=== PATIENT | male | born 1965 | race Caucasian/White ===

== ENCOUNTER 2016-10-16 14:03 | Inpatient (IN) | payer MEDICAID ==
[2016-10-16 14:44] LABS: % IMMATURE GRANULYOCYTES 0.4 % (0.0-1.1); ABSOLUTE IMMATURE GRANULOCYTES 0.02 10^3/uL (0.00-0.10); ADD DIFF? NO; ADD MORPH? NO; ADD SCAN? NO; ATYPICAL LYMPHOCYTE FLAG 0 (0-99); FRAGMENT RBC FLAG 0 (0-99); HEMATOCRIT 43.2 % (40.0-51.0); LEFT SHIFT FLG 0 (0-99); LIPEMIA HEMOLYSIS FLAG 90 (0-99); MEAN CELL HEMOGLOBIN 36.3 pg (27.9-34.1); MEAN CELL HEMOGLOBIN CONCENTR. 34.7 g/dL (32.4-36.7); MEAN CELL VOLUME 104.6 fL (81.5-99.8); MEAN PLATELET VOLUME 9.7 fL (8.7-11.7); PLATELET CLUMPS FLAG 10 (0-99); PLATELET COUNT 91 10^3/uL (150-400); RED BLOOD CELL COUNT 4.13 10^6/uL (4.40-6.38); RED CELL DISTRIBUTION WIDTH 12.1 % (11.5-15.2)
[2016-10-16 14:56] LABS: ANION GAP 12 mEq/L (8-16); CALCIUM 8.4 mg/dL (8.5-10.4); CARBON DIOXIDE 24 mEq/l (22-31); CHLORIDE 98 mEq/L (97-110); CREATININE 0.6 mg/dL (0.7-1.3); ETHANOL SERUM 239 mg/dL (0-10); GLOMERULAR FILTRATION RATE > 60; GLUCOSE 126 mg/dL (70-100); POTASSIUM 4.1 mEq/L (3.5-5.2); SODIUM 134 mEq/L (134-144)
[2016-10-16 15:16] LABS: ALBUMIN 4.1 g/dL (3.5-5.0); BILIRUBIN,TOTAL 1.5 mg/dL (0.1-1.4); BILIRUBIN-CONJUGATED 0.9 mg/dL (0.0-0.5); BILIRUBIN-UNCONJUGATED 0.6 mg/dL (0.0-1.1); TOTAL PROTEIN 7.4 g/dL (6.3-8.2)
--- NOTE | 2016-10-16 15:16 | EDPHY ---
H & P Stated Complaint: Low o2, bilateral LE edema Source: Patient, Family, Old records Exam Limitations: Intoxication - Personal History Current Tetanus/Diphtheria Vaccine: Unsure Current Tetanus Diphtheria and Acellular Pertussis (TDAP): Unsure - Medical/Surgical History Hx Asthma: No Hx Chronic Respiratory Disease: No Hx Diabetes: No Hx Cardiac Disease: No Hx Renal Disease: No Hx Cirrhosis: No Hx Alcoholism: Yes Hx HIV/AIDS: No Hx Splenectomy or Spleen Trauma: No Other PMH: Anxiety, ETOH Abuse - Social History Smoking Status: Never smoked Alcohol Use: Heavy Time Seen by Provider: 10/16/16 14:20 HPI/ROS: CHIEF COMPLAINT: lower extremity swelling HISTORY OF PRESENT ILLNESS: 51-year-old male presents emergency department sent from his primary care doctor's office today for low oxygen saturations and evaluation for lower extremity edema. Patient reports 4-5 weeks of lower extremity swelling, his doctor at [facility] started him on furosemide 40 mg a couple weeks ago, patient reports this is not helping. Patient reports feeling tired with shortness of breath on exertion. He reports he drinks 30 oz of vodka daily. Patient lost his job 7 months ago and has been drinking more sense. Before this he was drinking 16 oz daily for 30 years. Patient denies history of alcohol withdrawal seizure. He does report he gets the shakes sometimes. Patient reports he has had a difficult time sleeping over the last couple months. He was started on Neurontin recently for anxiety. He denies drug use, he does not smoke cigarettes. No cold symptoms, no cough, nasal congestion, sore throat. REVIEW OF SYSTEMS: A comprehensive 10 point review of systems is otherwise negative aside from elements mentioned in the history of present illness. (Lora Perez) - Physical Exam Exam: Physical Exam Gen: Alert and Oriented, pale, smells of alcohol HEENT: PERRL, dry mucous membranes NECK: no meningismus CV: Tachycardic rate and regular rhythm PULM: Increased work of breathing, tachypneic ABDOMEN: Obese, firm, non tender to palpation, BS present BACK: No CVA tenderness NEURO: Neurologically grossly intact EXTREMITIES: 2+ pitting edema bilateral lower extremities SKIN: Bilateral lower extremities with erythema, indurated PSYCH: answers questions appropriately. (Lora Perez) Constitutional: Initial Vital Signs Temperature (C) 37.2 C 10/16/16 14:08 Heart Rate 121 H 10/16/16 14:08 Respiratory Rate 18 10/16/16 14:08 Blood Pressure 140/95 H 10/16/16 14:08 O2 Sat (%) 85 L 10/16/16 14:08 O2 Delivery Mode Nasal Cannula O2 (L/minute) 2 Allergies/Adverse Reactions: No Known Allergies Allergy (Unverified 10/16/16 14:07) Home Medications: Medication Instructions Recorded Furosemide [Lasix 40 MG (*)] 40 mg PO DAILY 10/16/16 Gabapentin [Neurontin 300 MG (*)] 300 mg PO TID 10/16/16 Herbals/Supplements -Info Only 1 ea PO DAILY 10/16/16 Multivitamins [Multivitamin (*)] 1 each PO DAILY 10/16/16 Potassium Cl [Klor-Con 20 meq (*)] 20 meq PO BIDMEAL 10/16/16 Vitamin B Complex [B Complex] 1 each PO DAILY 10/16/16 Medical Decision Making - Diagnostics EKG Interpretation: EKG: Complete interpretation has been separately recorded in the [facility] archive. Summary impression: Sinus tachycardia, nonspecific ST T wave changes noted (Daryl Lerma) Imaging: Imaging Impressions Chest X-Ray 10/16/16 14:22 Impression: 1. Mild peribronchial thickening suggesting airways disease/bronchitis. 2. Additional findings as above. Extremity Venous Study 10/16/16 14:45 Impression: No evidence of deep vein thrombosis in the right or left lower extremity. Results called to Faheem Perez at 3:35 pm. Abdomen Ultrasound 10/16/16 15:56 Impression: 1. Eccentric gallbladder wall thickening, which could be related to cholecystitis. Gallbladder wall edema can also be seen with hypoproteinemia and other etiologies. Clinical correlation is recommended. 2. Enlarged fatty liver without definite evidence of cirrhosis. 3. Limited study due to body habitus. Findings discussed with Lora Perez NP 10/16/2016 at 16:37. ED Course/Re-evaluation: Patient with room air oxygen saturations of 85%, heart rate of 121, he is afebrile. Sats IV established, CBC, chemistry panel, LFTs, BNP, troponin, chest x-ray, abdominal ultrasound ordered. ETOH is 239, chemistry panel shows normal creatinine at 0.6, patient has elevated liver function tests, BNP is 169, lipase 931. Patient has platelets of 91,000. EKG shows sinus tachycardia with nonspecific ST and T wave changes. With none to compare. CT chest with IV contrast to evaluate for pulmonary embolism has been ordered. Patient will be admitted to the hospitalist for hypoxia and lower extremity edema. I suspect he will start alcohol. The patient will be admitted to the step-down ICU for further evaluation and monitoring. (Lora Perez) Other Provider: The patient did receive 1 mg of Ativan by myself at 7:20 p.m. for symptoms consistent with alcohol withdrawal including tremor, slight tachycardia and agitation. (Daryl Lerma) - Data Points Laboratory Results: Laboratory Results 10/16/16 14:30 10/16/16 14:30 10/16/16 10/16/16 10/16/16 15:00 14:30 14:30 WBC RBC Hgb Hct MCV MCH MCHC RDW Plt Count MPV Neut % (Auto) Lymph % (Auto) [place]er % (Auto) Eos % (Auto) Baso % (Auto) Nucleat RBC Rel Count Absolute Neuts (auto) Absolute Lymphs (auto) Absolute Monos (auto) Absolute Eos (auto) Absolute Basos (auto) Absolute Nucleated RBC Immature Gran % Immature Gran # Sodium Potassium Chloride Carbon Dioxide Anion Gap BUN Creatinine Estimated GFR Glucose Calcium Total Bilirubin 1.5 mg/dL H mg/dL (0.1-1.4) Conjugated Bilirubin 0.9 mg/dL H mg/dL (0.0-0.5) Unconjugated Bilirubin 0.6 mg/dL mg/dL (0.0-1.1) AST 322 IU/L H IU/L (17-59) ALT 110 IU/L H IU/L (21-72) Alkaline Phosphatase 95 IU/L IU/L (38-126) Troponin I < 0.012 ng/mL ng/mL (0-0.034) NT-Pro-B Natriuret Pep 169 pg/mL H pg/mL (0-125) Total Protein 7.4 g/dL g/dL (6.3-8.2) Albumin 4.1 g/dL g/dL (3.5-5.0) Lipase 931.0 IU/L H IU/L (23-300) Urine Color YELLOW Urine Appearance CLEAR Urine pH 5.0 (5.0-7.5) Ur Specific [place] 1.008 (1.002-1.030) Urine Protein 1+ H (NEGATIVE) Urine Ketones NEGATIVE (NEGATIVE) Urine Blood 1+ H (NEGATIVE) Urine Nitrate NEGATIVE (NEGATIVE) Urine Bilirubin NEGATIVE (NEGATIVE) Urine Urobilinogen 2.0 EU H EU (0.2-1.0) Ur Leukocyte Esterase NEGATIVE (NEGATIVE) Urine RBC 5-10 /hpf H /hpf (0-3) Urine WBC 1-3 /hpf /hpf (0-3) Ur Epithelial Cells NONE SEEN /lpf /lpf (NONE-1+) Urine Bacteria TRACE /hpf H /hpf (NONE SEEN) Hyaline Casts 50-182 /lpf H /lpf (0-1) Ur Culture Indicated? NOT INDICATED (NI) Urine Glucose NEGATIVE (NEGATIVE) Ethyl Alcohol 10/16/16 10/16/16 14:30 14:30 WBC 4.68 10^3/uL 10^3/uL (3.80-9.50) RBC 4.13 10^6/uL L 10^6/uL (4.40-6.38) Hgb 15.0 g/dL g/dL (13.7-17.5) Hct 43.2 % % (40.0-51.0) MCV 104.6 fL H fL (81.5-99.8) MCH 36.3 pg H pg (27.9-34.1) MCHC 34.7 g/dL g/dL (32.4-36.7) RDW 12.1 % % (11.5-15.2) Plt Count 91 10^3/uL L 10^3/uL (150-400) MPV 9.7 fL fL (8.7-11.7) Neut % (Auto) 63.5 % % (39.3-74.2) Lymph % (Auto) 17.9 % % (15.0-45.0) Hettinger % (Auto) 15.4 % H % (4.5-13.0) Eos % (Auto) 1.7 % % (0.6-7.6) Baso % (Auto) 1.1 % % (0.3-1.7) Nucleat RBC Rel Count 0.0 % % (0.0-0.2) Absolute Neuts (auto) 2.97 10^3/uL 10^3/uL (1.70-6.50) Absolute Lymphs (auto) 0.84 10^3/uL L 10^3/uL (1.00-3.00) Absolute Monos (auto) 0.72 10^3/uL 10^3/uL (0.30-0.80) Absolute Eos (auto) 0.08 10^3/uL 10^3/uL (0.03-0.40) Absolute Basos (auto) 0.05 10^3/uL 10^3/uL (0.02-0.10) Absolute Nucleated RBC 0.00 10^3/uL 10^3/uL (0-0.01) Immature Gran % 0.4 % % (0.0-1.1) Immature Gran # 0.02 10^3/uL 10^3/uL (0.00-0.10) Sodium 134 mEq/L mEq/L (134-144) Potassium 4.1 mEq/L mEq/L (3.5-5.2) Chloride 98 mEq/L mEq/L (97-110) Carbon Dioxide 24 mEq/l mEq/l (22-31) Anion Gap 12 mEq/L mEq/L (8-16) BUN 13 mg/dL mg/dL (7-23) Creatinine 0.6 mg/dL L mg/dL (0.7-1.3) Estimated GFR > 60 Glucose 126 mg/dL H mg/dL (70-100) Calcium 8.4 mg/dL L mg/dL (8.5-10.4) Total Bilirubin Conjugated Bilirubin Unconjugated Bilirubin AST ALT Alkaline Phosphatase Troponin I NT-Pro-B Natriuret Pep Total Protein Albumin Lipase Urine Color Urine Appearance Urine pH Ur Specific [place] Urine Protein Urine Ketones Urine Blood Urine Nitrate Urine Bilirubin Urine Urobilinogen Ur Leukocyte Esterase Urine RBC Urine WBC Ur Epithelial Cells Urine Bacteria Hyaline Casts Ur Culture Indicated? Urine Glucose Ethyl Alcohol 239 mg/dL H mg/dL (0-10) Medications Given: Discontinued Medications Chlordiazepoxide HCl (Librium) 50 mg PO ONCE ONE Stop: 10/16/16 17:09 Last Admin: 10/16/16 17:29 Dose: 50 mg Sodium Chloride (Ns) 500 mls @ 1,500 mls/hr IV ONCE ONE Stop: 10/16/16 17:30 Last Admin: 10/16/16 17:29 Dose: 500 mls Lorazepam (Ativan Injection) 1 mg IVP ONCE ONE Stop: 10/16/16 18:48 Last Admin: 10/16/16 18:58 Dose: 1 mg Departure - Departure Disposition: [facility] Inpatient Acute Clinical Impression: Hypoxia Alcohol intoxication Qualifiers: Complication of substance-induced condition: uncomplicated Qualified Code(s): F10.120 - Alcohol abuse with intoxication, uncomplicated Lower extremity edema Qualifiers: Laterality: bilateral Qualified Code(s): R60.0 - Localized edema Condition: Fair
[2016-10-16 15:32] LABS: COLOR YELLOW; LEUKOCYTE ESTERASE,URINE NEGATIVE (NEGATIVE); NITRITE,URINE NEGATIVE (NEGATIVE)
[2016-10-16 15:34] LABS: BACTERIA TRACE /hpf (NONE SEEN)
[2016-10-16 15:35] LABS: HYALINE CASTS 50-182 /lpf (0-1)
--- NOTE | 2016-10-16 16:40 | CPEKG ---
Heart Rate: 107 RR Interval: 561 P-R Interval: 172 QRSD Interval: 102 QT Interval: 356 QTC Interval: 475 P Randolph: 36 QRS Randolph: 63 T Wave Randolph: 1 EKG Severity - ABNORMAL ECG - EKG Impression: SINUS TACHYCARDIA Electronically Signed By: Daryl Lerma 16-Oct-2016 17:04:36
[2016-10-16] MEDS ORDERED: IOPAMIDOL (ISOVUE 370) 100 ML BTL IV ONE (17:00)
[2016-10-16] MEDS ORDERED: ONDANSETRON 4 MG/2 ML VIAL IVP PRN (17:03)
[2016-10-16] MEDS ORDERED: ONDANSETRON DISINTEGRATING 4 MG TAB PO PRN (17:03)
[2016-10-16] MEDS ORDERED: ACETAMINOPHEN 325 MG TAB PO PRN (17:03)
[2016-10-16] MEDS ORDERED: chlordiazePOXIDE 25 MG CAP PO ONE (17:08)
[2016-10-16] MEDS ORDERED: NS 500 ML IV ONE (17:11)
[2016-10-16] MEDS ORDERED: LORazepam 2 MG/ML INJ IVP ONE (18:47)
[2016-10-16] MEDS ORDERED: CEFAZOLIN 1 GM/DEXTROSE/50 ML BAG IV ONE (19:15)
--- NOTE | 2016-10-16 19:21 | GHP ---
[f rep st] HISTORY AND PHYSICAL DATE OF ADMISSION: 10/16/2016 CHIEF COMPLAINT: Lower extremity edema. HISTORY OF PRESENT ILLNESS: A 51-year-old male with a past medical history of intermittent hyperten kady, who presents with complaints of increasing lower extremity edema and pain. The patient had fe w treatable medical conditions prior to 7 months ago when he lost his job, and began drinking upward s of 30 ounces of vodka a day with minimal movement in his home, as he describes walking from his co uch to the kitchen and kitchen to bed. The patient has gained 35 pounds in that time period, and peters s become increasingly short of breath. Of note, his abdominal girth is markedly enlarged. He repor ts in the last 5 weeks has had expanding lower extremity edema that has become erythematous over the course of the last couple of weeks. The patient did seek care with his primary care provider, star karol some diuretics. However, he has not noted any improvement in his lower extremity edema. The pa tient denies any chest pain. Does not report distinct shortness of breath. However, exercise intol erance. Denies any pleuritic chest pain. Denies abdominal pain. Reports normal stooling. Denies dysuria or hematuria. Reports some chills at home, but no measured fevers. SOCIAL HISTORY: Excessive alcohol use, greater than 30 ounces of vodka a day. Denies tobacco. Den ies illicit drugs or marijuana. FAMILY HISTORY: No family history of alcoholism. REVIEW OF SYSTEMS: A 10-point review of systems is negative with the exception of that reported in the HPI. PHYSICAL EXAMINATION: VITAL SIGNS: Blood pressure 136/90, heart rate 106, respiratory rate 18, 85% on room air, 36.7. GENERAL: This is an obese appearing male, in mild distress. HEENT: Notable f or dry mucous membranes. Eye exam is negative for any icterus. CARDIAC: Tachycardic. PULMONARY: Limited respiratory effort, but clear to auscultation. GASTROINTESTINAL: The patient is obese, has a tense abdomen. Positive bowel sounds and is nontender. MUSCULOSKELETAL: Notable for symmetric 2+ lower extremity edema. SKIN: Notable for erythema extending from the bilateral knees to the bobbi sum of both feet. No other rashes are appreciated. NEUROLOGIC: The patient is very tremulous and has tongue fasciculations. Alert and oriented x3. PSYCHIATRIC: He is scared. DATA: White count 4.6, hematocrit 43.2, MCV 104, platelet count 291, creatinine is 0.6, AST is 322, ALT 110, albumin of 4.1. Urinalysis shows 50 to 182 hyaline casts. Blood alcohol is 239. Ultrasound of the bilateral lower extremities, which I reviewed, shows no deep venous thrombosis. C hest x-ray, which I personally reviewed and interpreted, shows no infiltrates or edema. Abdominal u ltrasound, which I reviewed, shows fatty infiltration of the liver, but no definitive cirrhosis. No visible ascites is appreciated. ASSESSMENT AND PLAN: This is a 51-year-old male, presenting with lower extremity edema. 1. Acute alcohol withdrawal. The patient has a blood alcohol of 239, and is already tremulous, wit h tongue fasciculations. Based on his alcohol intake at home, I suspect he typically has a blood al cohol in the 400s. I have initiated high-dose Librium dosing, as well as scheduled the CIWA protoco l, and I have written already for a Precedex drip, as I suspect the patient will need one in the nex t 24 hours. 2. Alcohol abuse. Obviously, very high consumption rate related to depression, anxiety in the home . We will treat with vitamins. The patient will need resources after his inpatient stay. 3. Acute bilateral lower extremity cellulitis. We will initiate cefazolin IV. The patient was usi ng diuretics in the outpatient setting. We can consider restarting these. However, he is receiving contrast and some other medications. I do not want to compound any damage his kidneys. We will as sess his exam after initiation of antibiotics. 4. Acute alcoholic hepatitis. We will send coag so we can calculate discriminant function. It is a fortuitous finding that there are no radiographic signs of cirrhosis at this time. Reviewed the i mportance of cessation with this patient going forward. 5. Thrombocytopenia, suspect secondary to bone marrow suppression with alcohol abuse. We will foll ow daily. The patient does not have any acute bleeding at this time. 6. Acute hypoxic respiratory failure. The patient had a CTA of the chest that was negative for pul monary embolic disease. There is no visible pneumonia or parenchymal abnormalities. Suspect this i s likely a component of OHS/JANIE. We will, however, order a transthoracic echocardiogram to rule out alcohol-related cardiomyopathy. 7. Macrocytic anemia. Suspect secondary to marrow suppression with alcohol abuse. We will follow his counts while inpatient. 8. Prophylaxis with Lovenox. DIET: Regular. DISPOSITION: I expect greater than 2 midnights, as the patient is likely to begin severe alcohol wi thdrawal in the next 12-24 hours, which I expect will require Precedex drip for control. I have dis cussed the case with the emergency room physician. The patient should be triaged to the stepdown un it in anticipation of Precedex. /[id number]/MODL
[2016-10-16] MEDS: GABAPENTIN 300 MG CAP PO SCH (21:31)
[2016-10-16] MEDS: chlordiazePOXIDE 25 MG CAP PO SCH (21:31)
[2016-10-16] MEDS: LORazepam 2 MG/ML INJ IVP PRN (22:28)
[2016-10-17] MEDS: DEXMEDETOMIDINE HCL 400 MCG in NS 100 ML IV SCH ×3 (01:15→23:20)
[2016-10-17 05:53] LABS: % IMMATURE GRANULYOCYTES 0.6 % (0.0-1.1); ABSOLUTE IMMATURE GRANULOCYTES 0.02 10^3/uL (0.00-0.10); ADD DIFF? NO; ADD MORPH? NO; ADD SCAN? NO; ATYPICAL LYMPHOCYTE FLAG 10 (0-99); FRAGMENT RBC FLAG 0 (0-99); HEMOGLOBIN 14.3 g/dL (13.7-17.5); LEFT SHIFT FLG 0 (0-99); LIPEMIA HEMOLYSIS FLAG 90 (0-99); MEAN CELL HEMOGLOBIN 35.5 pg (27.9-34.1); MEAN CELL VOLUME 104.2 fL (81.5-99.8); MEAN PLATELET VOLUME 10.1 fL (8.7-11.7); PLATELET CLUMPS FLAG 10 (0-99); PLATELET COUNT 72 10^3/uL (150-400); RED BLOOD CELL COUNT 4.03 10^6/uL (4.40-6.38); RED CELL DISTRIBUTION WIDTH 12.1 % (11.5-15.2)
[2016-10-17 06:07] LABS: ALANINE AMINOTRANSFERASE 94 IU/L (21-72); ALBUMIN 3.7 g/dL (3.5-5.0); ALKALINE PHOSPHATASE 90 IU/L (38-126); ANION GAP 12 mEq/L (8-16); ASPARTATE AMINOTRANSFERASE 232 IU/L (17-59); BILIRUBIN,TOTAL 1.9 mg/dL (0.1-1.4); CALCIUM 8.1 mg/dL (8.5-10.4); CARBON DIOXIDE 27 mEq/l (22-31); CHLORIDE 101 mEq/L (97-110); CREATININE 0.4 mg/dL (0.7-1.3); GLOMERULAR FILTRATION RATE > 60; GLUCOSE 105 mg/dL (70-100); POTASSIUM 3.6 mEq/L (3.5-5.2); SODIUM 140 mEq/L (134-144); TOTAL PROTEIN 6.7 g/dL (6.3-8.2)
[2016-10-17] MEDS: ENOXAPARIN 40 MG/0.4 ML SYR SC SCH (08:00)
[2016-10-17] MEDS ORDERED: FUROSEMIDE 40 MG TAB PO SCH (09:00)
[2016-10-17] MEDS ORDERED: Herbals/Supplements -Info Only PO SCH (09:00)
[2016-10-17] MEDS: chlordiazePOXIDE 25 MG CAP PO SCH (09:40)
[2016-10-17] MEDS: GABAPENTIN 300 MG CAP PO SCH ×3 (09:42→21:52)
[2016-10-17] MEDS: THIAMINE HCL 100 MG TAB PO SCH (09:45)
[2016-10-17] MEDS: MULTIVITAMINS 1 EACH TAB PO SCH (09:47)
--- NOTE | 2016-10-17 10:41 | ECHO ---
[id number] + + [address] : : [place] [address] : : [phone] + Adult Echocardiographic Report + --+ :Name: MARIANA SANCHEZ JStudy Date: 10/17/2016 09:04 AM : : Hospital Admission Number: [id number] : :: 1965 Gender: Male Height: 70 in : :Age: 51 yrs Race: WH Weight: 260 lb : :Reason For Study: Eval LV Fx : : BSA: 2.3 meter s2: :History: Hypoxia, edema, ETOH abuse. : + --+ MMode/2D Measurements \T\ Calculations IVSd: 1.4 cm RVDd: 4.8 cm FS: 27.3 % Ao root diam: 3.9 cm LVPWd: 1.5 cm LVIDd: 5.6 cm EDV(Teich): 153.3 ml ACS: 2.5 cm LVIDs: 4.1 cm ESV(Teich): 72.9 ml EF(Teich): 52.4 % Normal Measurement Values: + + :LVIDd (3.5-5.7cm) IVSd (0.6-1.1cm) LVPWd (0.6-1.1cm) Aortic Root (2.0-3.7cm)Left Atrium (1.5-4.0cm): :LV Vol(d) (76-115ml) LV Vol(s) (29-48ml) Ejec Fraction (50-65%)PV Jonnie (0.6- 1.2m/s) TV Jonnie (0.4-1.0m/s) : :MV E Jonnie (0.8-1.0m/s)MV A Jonnie (0.3-1.0m/s)LVOT Jonnie (0.7-1.2m/s) Asc Ao Jonnie ( 0.9-1.8m/s) : + + Doppler Measurements \T\ Calculations MV E max jonnie: Ao V2 max: LV V1 max: PA V2 max: 57.3 cm/sec 137.0 cm/sec 67.1 cm/sec 73.3 cm/sec MV A max jonnie: Ao max P.5 mmHgLV V1 max PG: PA max P.1 cm/sec 1.8 mmHg 2.1 mmHg MV E/A: 0.78 TR max jonnie: 316.0 cm/sec TR max P.9 mmHg RAP systole: 5.0 mmHg RVSP(TR): 44.9 mmHg Left Ventricle The left ventricle is normal in size. There is normal left ventricular wall thickness. Ejection Fraction = 50-55%. There is Doppler evidence for diastolic dysfunction. Flattened septum is consistent with RV pressure/volume overload. Right Ventricle The right ventricle is moderately dilated. The right ventricular systolic function is moderate to severely reduced. Atria The left atrium is mildly dilated. Mitral Valve The mitral valve is normal in structure and function. There is no evidence of mitral valve prolapse. There is no mitral valve stenosis. There is trace mitral regurgitation. Tricuspid Valve There is mild tricuspid regurgitation. Right ventricular systolic pressure is 45mmHg. There is Doppler evidence for mild pulmonary hypertension. The pulmonary pressures are most likely underestimated due to poor right venticle function. Aortic Valve The aortic valve is normal in structure and function. The aortic valve is trileaflet. Mild Aortic Valve Calcification. There is no aortic stenosis. There is no aortic insufficiency. Pulmonic Valve The pulmonic valve is normal in structure and function. There is no pulmonic valvular regurgitation. Great Vessels The aortic root is normal size. Pericardium/Pleural There is no pericardial effusion. Conclusion A complete two-dimensional transthoracic echocardiogram was performed (2D, M-mode, Doppler and color flow Doppler). Ejection Fraction = 50-55%. There is Doppler evidence for diastolic dysfunction. Mildly flattened septum is consistent with RV pressure/volume overload. The right ventricle is moderately dilated. The right ventricular systolic function is moderate to severely reduced. The left atrium is mildly dilated. The mitral valve is normal in structure and function. There is trace mitral regurgitation. There is mild tricuspid regurgitation. There is Doppler evidence for mild pulmonary hypertension. The pulmonary pressures could be underestimated due to poor right venticle function. The aortic valve is normal in structure and function. The aortic valve is trileaflet. Mild Aortic Valve Calcification There is no aortic stenosis. There is no pericardial effusion. Final Reading Physician: Mariama English signed on 10/17/2016 10:40 AM Ordering Physician: Emmy Culp Performed By: Solomon Davila, TESSCS
[2016-10-17] MEDS: VITAMIN B COMPLEX 1 EA CAP/TAB PO SCH (11:04)
--- NOTE | 2016-10-17 11:13 | HOSPPROG ---
Hospitalist Progress Note Assessment/Plan: #Acute hypoxemic resp failure: -CTA negative for PE -suspect due to RHF/diastolic HF: RVSP 45mmHg, but likely underestimated due to poor RV function -Change to IV Lasix this afternoon #Acute etoh withdrawal: CIWA, Precedex #Acute abuse: will need counseling once mental status clears #Nonpurulent LE cellulitis: Ancef #Decompensated RHF: IV lasix and monitor lytes #Macrocytic anemia: due Etoh #Alcoholic hepatitis: discriminant function 6, no indication for steroids #Thrombocytopenia: due to Etoh. No signs of active bleeding #Diet: regular #DVT ppx: SCDs Disp: warrants inpatient admission with acute etoh w/d warranting CIWA, Precedex Subjective: endorsed swelling in legs for past 3 weeks, SOB Objective: Vital Signs Temp Pulse Resp BP Pulse Ox 37.0 C 73 15 139/96 H 94 10/17/16 08:00 10/17/16 08:00 10/17/16 08:00 10/17/16 08:00 10/17/16 08:00 Laboratory Results 10/17/16 05:38 10/17/16 05:38 10/16/16 10/17/16 10/18/16 05:59 05:59 05:59 Intake Total 1262 Output Total 575 Balance 687 - Physical Exam Constitutional: obese Eyes: PERRL Ears, Nose, Mouth, Throat: dry mucous membranes Cardiovascular: JVD, tachycardia, edema (+2 LE edema) Respiratory: no respiratory distress, reduced air movement Gastrointestinal: normoactive bowel sounds, soft, non-tender abdomen, distension Skin: other (bilateral legs with erythema/warmth to knees. No purulence) Neurologic: AAOx3 (alert to self, place, not date), CN II-XII Intact, other ( tremor and tongue fasciulation) Psychiatric: anxious ICD10 Worksheet Patient Problems: Problems Problem Status Onset Alcohol intoxication Acute Hypoxia Acute Lower extremity edema Acute
[2016-10-17] MEDS: LORazepam 2 MG/ML INJ IVP PRN (11:14)
[2016-10-17 12:11] LABS: APTT 30.6 SEC (23.0-38.0); INR 1.14 (0.83-1.16); PROTIME(PATIENT) 14.5 SEC (12.0-15.0)
--- NOTE | 2016-10-17 14:15 | WOCRNPDOC ---
RICH Advanced Assessment Note - Skin Integrity Problem, Advanced Assess Left Medial Buttock Dressing Type: Open to Air Exudate Amount: Scant Exudate Color: Reddish/Yellow Exudate Characteristic(s): Serosanguinous Yessy Wound Tissue: Blanching, Erythema, Macerated, Denuded Yessy Wound Swelling: Mild Wound Bed Color: Red Wound Bed Constitution: Smooth Tissue Site Measurement - Head-to-Toe Length X Width X Depth (cm): 2cmx1.1cmx0.2cm Pressure Injury Present on Admit: Yes (Injury present on admit; uncertain if pressure-related at this time.) Skin Integrity Problem Comment: Wound w/ partial-thickness tissue loss noted on L medial buttock, uncertain of etiology at this time. It is located over a fleshy part of the buttock, and has friable, macerated margins, indicative of moisture-related injury more than pressure. In addition, upon assessment patient was noted to be sitting on a urine-soaked underpad, which suggests some of the skin breakdown on his buttocks may be due to incontinence. He said "I sit all day in a chair," so I cannot rule out pressure injury at this time. Initiated pressure injury precautions (turns q2, Accu-max pump, off-loading buttocks) and ordered Clear Zinc to be applied over the wound and across buttocks. Will reassess on Thursday 10/19. scallop binder Zach present and assisting.
[2016-10-17] MEDS: FUROSEMIDE 20 MG/2 ML VIAL IVP SCH (15:08)
[2016-10-17] MEDS: LORazepam 1 MG TAB PO SCH (17:44)
[2016-10-18] MEDS: LORazepam 1 MG TAB PO SCH ×3 (01:07→13:54)
[2016-10-18] MEDS: DEXMEDETOMIDINE HCL 400 MCG in NS 100 ML IV SCH (01:07)
[2016-10-18 04:35] LABS: ALANINE AMINOTRANSFERASE 76 IU/L (21-72); ALBUMIN 3.9 g/dL (3.5-5.0); ALKALINE PHOSPHATASE 87 IU/L (38-126); ANION GAP 14 mEq/L (8-16); ASPARTATE AMINOTRANSFERASE 155 IU/L (17-59); BILIRUBIN,TOTAL 1.9 mg/dL (0.1-1.4); CALCIUM 8.2 mg/dL (8.5-10.4); CARBON DIOXIDE 27 mEq/l (22-31); CHLORIDE 100 mEq/L (97-110); CREATININE 0.5 mg/dL (0.7-1.3); GLOMERULAR FILTRATION RATE > 60; GLUCOSE 104 mg/dL (70-100); POTASSIUM 3.5 mEq/L (3.5-5.2); SODIUM 141 mEq/L (134-144)
[2016-10-18 04:48] LABS: MAGNESIUM 0.9 mg/dL (1.6-2.3)
[2016-10-18] MEDS ORDERED: PROTOCOL POTASSIUM 1 DOSE MISC PRN (07:25)
[2016-10-18] MEDS ORDERED: PROTOCOL MAGNESIUM 1 DOSE IV PRN (07:25)
[2016-10-18] MEDS ORDERED: MAGNESIUM SULF 2 GM/WATER 50 ML IV ONE ×2 (07:54→12:00)
[2016-10-18] MEDS ORDERED: MAGNESIUM SULF 2 GM/WATER 50 ML BAG IV ONE (07:58)
[2016-10-18] MEDS: FUROSEMIDE 20 MG/2 ML VIAL IVP SCH ×2 (09:29→15:36)
[2016-10-18] MEDS: ENOXAPARIN 40 MG/0.4 ML SYR SC SCH (09:29)
[2016-10-18] MEDS: THIAMINE HCL 100 MG TAB PO SCH (09:30)
[2016-10-18] MEDS: VITAMIN B COMPLEX 1 EA CAP/TAB PO SCH (09:30)
[2016-10-18] MEDS: MULTIVITAMINS 1 EACH TAB PO SCH (09:30)
[2016-10-18] MEDS: GABAPENTIN 300 MG CAP PO SCH ×3 (09:30→21:22)
[2016-10-18] MEDS ORDERED: chlordiazePOXIDE 25 MG CAP PO ONE (09:42)
[2016-10-18] MEDS ORDERED: POTASSIUM CL 20 MEQ TAB PO ONE (09:44)
[2016-10-18] MEDS ORDERED: POTASSIUM CL 10 MEQ TAB PO ONE ×2 (10:28→18:21)
--- NOTE | 2016-10-18 11:31 | GCON ---
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 REASON FOR ADMISSION: Dyspnea, alcohol withdrawals. HISTORY OF PRESENT ILLNESS: The patient is a 51-year-old white male with a past medical history of alcoholism. He also has a history of hypertension. He apparently lost his job 7 months ago and beg an drinking excessive amounts of vodka at that time, with very little exercise. Began having signif icant weight gain and then subsequently significant lower extremity edema. He presented to the [facility] room with multiple complaints and was found to be in withdrawals. He was subsequently admitte d to the intensive care unit. Currently, he is resting comfortably. His current CIME scales are ap proximately 13. He is on a Precedex drip. PAST MEDICAL HISTORY: Again significant for alcoholism, hypertension. ALLERGIES: No known allergies to medications. SOCIAL HISTORY: Again, excessive amounts of alcohol. No history of tobacco use. No history of nilda g use or marijuana use. PHYSICAL EXAMINATION: VITAL SIGNS: Blood pressure is 155/91, pulse 68, respirations 12, temperatur e 37, oxygen saturation 99% on 4 L. GENERAL: He is a moderately overweight 51-year-old white male who is resting comfortably, in no acute distress. HEENT: Eyes: PERRL. EOMI. Throat shows no randy thema nor tonsillar hypertrophy. NECK: Supple. No cervical adenopathy. HEART: Regular rate and rhythm without murmurs, rubs, or gallops. LUNGS: A few bibasilar crackles. There is no wheezing. ABDOMEN: Soft, nontender. Bowel sounds are present in all 4 quadrants. EXTREMITIES: No clubbing , cyanosis, or edema. LABORATORIES: White count 3.5, hemoglobin 14, hematocrit 42, platelet count is 72, MCV is 104. INR is 1.14. Sodium 141, potassium 3.5, chloride 100, CO2 is 27, BUN is 10, creatinine 0.5, glucose is 105. Liver function tests initially AST was 322, ALT 110; currently these are AST of 155, ALT of 7 6. Lipase is mildly elevated at 931. Alcohol level on presentation 239. IMPRESSION: 1. Alcoholism. 2. Acute alcohol withdrawals. 3. Cellulitis. 4. Right heart failure. 5. Thrombocytopenia. 6. Microcytic anemia. RECOMMENDATION: 1. Agree with CIWA protocol. 2. IV antibiotics using Ancef. 3. DVT and PE prophylaxis. 4. Stress ulcer prophylaxis. /[id number]/MODL
--- NOTE | 2016-10-18 13:08 | HOSPPROG ---
Hospitalist Progress Note Assessment/Plan: #Acute hypoxemic resp failure: * CTA negative for PE * suspect due to RHF/diastolic HF: RVSP 45mmHg, but likely underestimated due to poor RV function * could probably wean oxygen off #Acute etoh withdrawal * will add Librium and try to wean off Precedex * lower extremity cellulitis * still with some redness but not very warm. * Will continue with IV Ancef * lower extremity edema * will continue IV Lasix * would like to increase dose little bit but will hold off due to significant low magnesium *Decompensated RHF: IV lasix and monitor lytes #Macrocytic anemia: due Etoh #Alcoholic hepatitis: discriminant function 6, no indication for steroids #Thrombocytopenia: due to Etoh. No signs of active bleeding #Diet: regular #DVT ppx: SCDs Subjective: still feels like he is in withdrawal. leg swelling is not much better Objective: Vital Signs Temp Pulse Resp BP Pulse Ox 37.1 C 86 16 105/97 H 97 10/18/16 12:00 10/18/16 12:00 10/18/16 12:00 10/18/16 12:00 10/18/16 12:00 Laboratory Results 10/17/16 05:38 10/18/16 04:00 10/17/16 10/18/16 10/19/16 05:59 05:59 05:59 Intake Total 1262 1755 Output Total 575 2725 Balance 687 -970 PT 14.5 SEC (12.0-15.0) 10/17/16 11:50 INR 1.14 (0.83-1.16) 10/17/16 11:50 discussed with pulmonology telemetry personally viewed interpreted normal sinus rhythm - Physical Exam Constitutional: no apparent distress, appears nourished, not in pain Eyes: anicteric sclera, EOMI Ears, Nose, Mouth, Throat: moist mucous membranes, hearing normal, ears appear normal Cardiovascular: regular rate and rhythym, no murmur, rub, or gallop, systolic murmur, edema ( 2+) Respiratory: no respiratory distress, no rales or rhonchi, clear to auscultation Gastrointestinal: normoactive bowel sounds, soft, non-tender abdomen, no palpable masses Skin: other ( mild erythema lower extremities not very warm) Neurologic: AAOx3 Psychiatric: interacting appropriately, not anxious, not encephalopathic, thought process linear ICD10 Worksheet Patient Problems: Problems Problem Status Onset Alcohol intoxication Acute Hypoxia Acute Lower extremity edema Acute
[2016-10-18 18:15] LABS: POTASSIUM 3.6 mEq/L (3.5-5.2)
[2016-10-18] MEDS: chlordiazePOXIDE 25 MG CAP PO SCH (19:40)
[2016-10-18] MEDS: LORazepam 2 MG/ML INJ IVP PRN (21:23)
[2016-10-19] MEDS: DEXMEDETOMIDINE HCL 400 MCG in NS 100 ML IV SCH ×2 (04:23→05:26)
[2016-10-19 06:06] LABS: ANION GAP 13 mEq/L (8-16); CALCIUM 8.2 mg/dL (8.5-10.4); CARBON DIOXIDE 27 mEq/l (22-31); CHLORIDE 98 mEq/L (97-110); CREATININE 0.5 mg/dL (0.7-1.3); GLOMERULAR FILTRATION RATE > 60; GLUCOSE 102 mg/dL (70-100); MAGNESIUM 1.5 mg/dL (1.6-2.3); POTASSIUM 3.5 mEq/L (3.5-5.2); SODIUM 138 mEq/L (134-144)
[2016-10-19] MEDS ORDERED: POTASSIUM CL 10 MEQ TAB PO ONE ×2 (06:24→20:15)
[2016-10-19] MEDS ORDERED: MAGNESIUM SULF 1 GM/DEXTROSE 100 ML IV ONE (07:21)
[2016-10-19] MEDS: THIAMINE HCL 100 MG TAB PO SCH (07:54)
[2016-10-19] MEDS: MULTIVITAMINS 1 EACH TAB PO SCH (07:54)
[2016-10-19] MEDS: ENOXAPARIN 40 MG/0.4 ML SYR SC SCH (07:54)
[2016-10-19] MEDS: VITAMIN B COMPLEX 1 EA CAP/TAB PO SCH (07:55)
[2016-10-19] MEDS: FUROSEMIDE 20 MG/2 ML VIAL IVP SCH ×2 (07:55→15:01)
[2016-10-19] MEDS: GABAPENTIN 300 MG CAP PO SCH ×3 (07:55→21:57)
[2016-10-19] MEDS: chlordiazePOXIDE 25 MG CAP PO SCH ×2 (07:55→20:12)
--- NOTE | 2016-10-19 09:02 | PDINTPN ---
Community Manager Progress Note Assessment/Plan: Assessment/Plan: * Alcoholism * Acute alcohol withdrawals-markedly improved. CIWA score is down to 5. He is off Precedex * Respiratory-stable on room air * Cellulitis * LE edema * Right heart failure * Disposition-likely home soon Subjective: Sitting up in chair eating [employer]. The patient states he feels markedly improved and wishes to be discharged home. Objective: Vital Signs Temp Pulse Resp BP Pulse Ox 36.8 C 74 15 130/85 H 98 10/18/16 20:00 10/19/16 04:00 10/19/16 04:00 10/19/16 04:00 10/19/16 04:00 Laboratory Results 10/17/16 05:38 10/19/16 05:35 10/18/16 10/19/16 10/20/16 05:59 05:59 05:59 Intake Total 1755 1187 Output Total 2725 Balance -970 1187 PT 14.5 SEC (12.0-15.0) 10/17/16 11:50 INR 1.14 (0.83-1.16) 10/17/16 11:50 Physical Exam - Physical Exam General Appearance: alert, no apparent distress EENT: PERRL/EOMI, normal ENT inspection, pharynx normal Neck: non-tender, full range of motion, supple, normal inspection Respiratory: chest non-tender, lungs clear, normal breath sounds Cardiac/Chest: normal peripheral pulses, regular rate, rhythm Peripheral Pulses: 2+: carotid (R), carotid (L), femoral (R), femoral (L), dorsalis-pedis (R), dorsalis-pedis (L) Abdomen: normal bowel sounds, non-tender, soft Male Genitalia: deferred Rectal: deferred Skin: other (Erythema of the lower extremities.) Extremities: normal range of motion, swelling, No non-tender Neuro/Psych: alert, oriented x 3 ICD10 Worksheet Patient Problems: Problems Problem Status Onset Alcohol intoxication Acute Hypoxia Acute Lower extremity edema Acute
[2016-10-19] MEDS ORDERED: FUROSEMIDE 20 MG/2 ML VIAL IVP ONE (09:10)
[2016-10-19] MEDS ORDERED: POTASSIUM CL 20 MEQ TAB PO ONE (09:11)
[2016-10-19] MEDS: LORazepam 2 MG/ML INJ IVP PRN ×5 (09:17→23:44)
--- NOTE | 2016-10-19 10:19 | WOCRNPDOC ---
R[facility] Advanced Assessment Note - Skin Integrity Problem, Advanced Assess Left Medial Buttock Dressing Type: Allevyn Life Exudate Amount: Scant Exudate Color: Reddish/Yellow Exudate Characteristic(s): Serosanguinous Integumentary Issue Intervention: Dressing Removed Suri Wound Tissue: Blanching, Erythema, Denuded Suri Wound Swelling: Mild Wound Edges: Irregular Site Odor: None Skin Integrity Problem Comment: Site improved since previous assessment, w/ decreasing erythema and swelling suri-wound. Protective dressing placed by nursing was removed, as it is trapping moisture. Applied Rains skin protectant over wound and suri-wound skin to act as a barrier between skin and moisture. Also supplied deaf teacherCARL Lucio w/ bottle of Calvilon skin barrier spray to be applied to gluteal cleft daily. Discussed w/ patient the importance of continued off-loading to reduce friction/heat/moisture to area.
[2016-10-19] MEDS ORDERED: MAGNESIUM SULF 2 GM/WATER 50 ML IV ONE (13:00)
--- NOTE | 2016-10-19 13:18 | HOSPPROG ---
Hospitalist Progress Note Assessment/Plan: #Acute hypoxemic resp failure: * CTA negative for PE * suspect due to RHF/diastolic HF: RVSP 45mmHg, but likely underestimated due to poor RV function * resolved #Acute etoh withdrawal * better * continue Librium * lower extremity cellulitis * still with some redness but not very warm. * Will continue with IV Ancef * lower extremity edema * increase Lasix today *Decompensated RHF: IV lasix and monitor lytes #Macrocytic anemia: due Etoh #Alcoholic hepatitis: discriminant function 6, no indication for steroids #Thrombocytopenia: due to Etoh. No signs of active bleeding #Diet: regular #DVT ppx: SCDs * disposition - probably home tomorrow Subjective: is feeling better. Wants to go home Objective: Vital Signs Temp Pulse Resp BP Pulse Ox 36.6 C 91 18 164/103 H 95 10/19/16 08:00 10/19/16 08:00 10/19/16 08:00 10/19/16 08:00 10/19/16 08:00 Laboratory Results 10/17/16 05:38 10/19/16 05:35 10/18/16 10/19/16 10/20/16 05:59 05:59 05:59 Intake Total 1755 1187 Output Total 2725 Balance -970 1187 PT 14.5 SEC (12.0-15.0) 10/17/16 11:50 INR 1.14 (0.83-1.16) 10/17/16 11:50 discussed with pulmonology - Physical Exam Constitutional: no apparent distress, appears nourished, not in pain Eyes: anicteric sclera, EOMI Ears, Nose, Mouth, Throat: moist mucous membranes, hearing normal, ears appear normal Cardiovascular: regular rate and rhythym, no murmur, rub, or gallop, edema ( 2+) Respiratory: no respiratory distress, no rales or rhonchi, clear to auscultation Gastrointestinal: normoactive bowel sounds, soft, non-tender abdomen, no palpable masses Skin: warm, other ( mild venous stasis changes lower extremities) Neurologic: AAOx3 Psychiatric: interacting appropriately, not anxious, not encephalopathic, thought process linear ICD10 Worksheet Patient Problems: Problems Problem Status Onset Alcohol intoxication Acute Hypoxia Acute Lower extremity edema Acute
[2016-10-19 19:21] LABS: POTASSIUM 3.6 mEq/L (3.5-5.2)
[2016-10-20] MEDS: LORazepam 2 MG/ML INJ IVP PRN ×8 (01:56→23:39)
[2016-10-20] MEDS: chlordiazePOXIDE 25 MG CAP PO SCH ×5 (05:04→23:41)
[2016-10-20 05:49] LABS: ANION GAP 14 mEq/L (8-16); CALCIUM 8.6 mg/dL (8.5-10.4); CARBON DIOXIDE 27 mEq/l (22-31); CHLORIDE 101 mEq/L (97-110); CREATININE 0.5 mg/dL (0.7-1.3); GLOMERULAR FILTRATION RATE > 60; GLUCOSE 132 mg/dL (70-100); MAGNESIUM 1.6 mg/dL (1.6-2.3); POTASSIUM 3.3 mEq/L (3.5-5.2); SODIUM 142 mEq/L (134-144)
--- NOTE | 2016-10-20 06:01 | HOSPPROG ---
Hospitalist Progress Note Assessment/Plan: Called to bedside by RN for impulsiveness, agitation and persistent BZ needs. Fell onto buttocks earlier this morning getting out of bed. A&P: #Etoh withdrawal: still with high benzo needs (2mg q 2hr). Increased Librium to TID. At high-risk for repeat falls and subsequent injuries. Will transfer back to ICU for closer monitoring. Add Precedex if needed #Tachycardia: 110-120s due to above #Accelerated HTN: DBP> 100. Cont CIWA treatment #Disp: transfer to SDU Subjective: "want to get out of here" Objective: Vital Signs Temp Pulse Resp BP Pulse Ox 37.1 C 110 H 22 H 174/113 H 92 10/20/16 03:39 10/20/16 03:39 10/20/16 03:39 10/20/16 03:39 10/20/16 03:39 Laboratory Results 10/17/16 05:38 10/20/16 05:00 10/19/16 10/20/16 10/21/16 05:59 05:59 05:59 Intake Total 1187 85 Output Total 200 Balance 1187 -115 PT 14.5 SEC (12.0-15.0) 10/17/16 11:50 INR 1.14 (0.83-1.16) 10/17/16 11:50 - Physical Exam Constitutional: other (restless) Eyes: PERRL (small, round, reactive) Ears, Nose, Mouth, Throat: moist mucous membranes Cardiovascular: regular rate and rhythym, tachycardia Respiratory: no respiratory distress Gastrointestinal: soft, non-tender abdomen, no palpable masses, distension Skin: erythema (BL lower extremities) Neurologic: CN II-XII Intact, other (alert to place, month. Not date or year. Tremors/tongue fasiculation) Psychiatric: anxious ICD10 Worksheet Patient Problems: Problems Problem Status Onset Alcohol intoxication Acute Hypoxia Acute Lower extremity edema Acute
[2016-10-20] MEDS ORDERED: DEXMEDETOMIDINE HCL 400 MCG in NS 100 ML IV SCH (06:32)
[2016-10-20] MEDS ORDERED: POTASSIUM CL 10 MEQ TAB PO ONE (07:19)
[2016-10-20] MEDS ORDERED: MAGNESIUM SULF 1 GM/DEXTROSE 100 ML IV ONE ×2 (07:48→22:22)
[2016-10-20] MEDS: GABAPENTIN 300 MG CAP PO SCH ×3 (07:49→20:47)
[2016-10-20] MEDS: MULTIVITAMINS 1 EACH TAB PO SCH (07:50)
[2016-10-20] MEDS: VITAMIN B COMPLEX 1 EA CAP/TAB PO SCH (07:50)
[2016-10-20] MEDS: THIAMINE HCL 100 MG TAB PO SCH (07:50)
[2016-10-20] MEDS: FUROSEMIDE 20 MG/2 ML VIAL IVP SCH ×2 (07:51→16:03)
--- NOTE | 2016-10-20 09:16 | PDINTPN ---
Clipper Automatic Progress Note Assessment/Plan: Assessment/Plan: * Alcoholism * Acute alcohol withdrawals-transferred from floor secondary to worsening CIWA score -continue protocol * Respiratory-stable on room air * Cellulitis * LE edema * Right heart failure Subjective: Sitting up eating. Awake and alert, but somewhat impulsive Objective: Vital Signs Temp Pulse Resp BP Pulse Ox 36.9 C 106 H 25 H 162/99 H 93 10/20/16 08:00 10/20/16 08:00 10/20/16 08:00 10/20/16 08:00 10/20/16 08:00 Laboratory Results 10/17/16 05:38 10/20/16 05:00 10/19/16 10/20/16 10/21/16 05:59 05:59 05:59 Intake Total 1187 85 Output Total 200 Balance 1187 -115 PT 14.5 SEC (12.0-15.0) 10/17/16 11:50 INR 1.14 (0.83-1.16) 10/17/16 11:50 Physical Exam - Physical Exam General Appearance: alert, no apparent distress EENT: PERRL/EOMI Neck: non-tender, full range of motion, supple, normal inspection Respiratory: chest non-tender, lungs clear, normal breath sounds Cardiac/Chest: normal peripheral pulses, regular rate, rhythm Peripheral Pulses: 2+: carotid (R), carotid (L), femoral (R), femoral (L), dorsalis-pedis (R), dorsalis-pedis (L) Abdomen: normal bowel sounds, non-tender, soft Male Genitalia: deferred Rectal: deferred Skin: normal color, warm/dry Lymphatic: no adenopathy ICD10 Worksheet Patient Problems: Problems Problem Status Onset Alcohol intoxication Acute Hypoxia Acute Lower extremity edema Acute
[2016-10-20] MEDS: ENOXAPARIN 40 MG/0.4 ML SYR SC SCH (09:56)
[2016-10-20] MEDS: chlordiazePOXIDE 25 MG CAP PO PRN (09:57)
[2016-10-20] MEDS ORDERED: POTASSIUM CL 20 MEQ TAB PO ONE ×2 (10:47→21:24)
[2016-10-20] MEDS ORDERED: MAGNESIUM SULF 2 GM/WATER 50 ML IV ONE (10:48)
[2016-10-20] MEDS: NICOTINE 14 MG/24 HR PATCH TD SCH (12:13)
--- NOTE | 2016-10-20 13:47 | HOSPPROG ---
Hospitalist Progress Note Assessment/Plan: #Acute etoh withdrawal * worsened overnight * increased scheduled Librium and add p.r.n. Librium as well as Ativan * lower extremity cellulitis * still with some redness but not very warm. * I think this is more venous stasis then cellulitis and will discontinue Ancef * lower extremity edema * cont Lasix today *Decompensated RHF: IV lasix and monitor lytes #Macrocytic anemia: due Etoh #Alcoholic hepatitis: discriminant function 6, no indication for steroids #Thrombocytopenia: due to Etoh. No signs of active bleeding #Diet: regular #Acute hypoxemic resp failure: * resolved #DVT ppx: SCDs Subjective: return for worsening tremulousness and fall Objective: Vital Signs Temp Pulse Resp BP Pulse Ox 37.6 C 104 H 24 H 155/97 H 93 10/20/16 12:00 10/20/16 12:00 10/20/16 12:00 10/20/16 12:00 10/20/16 12:00 Laboratory Results 10/17/16 05:38 10/20/16 05:00 10/19/16 10/20/16 10/21/16 05:59 05:59 05:59 Intake Total 1187 85 Output Total 200 Balance 1187 -115 PT 14.5 SEC (12.0-15.0) 10/17/16 11:50 INR 1.14 (0.83-1.16) 10/17/16 11:50 discussed with pulmonology tele personally viewed interpreted sinus tachycardia - Physical Exam Constitutional: no apparent distress, appears nourished, not in pain Eyes: anicteric sclera, EOMI Ears, Nose, Mouth, Throat: moist mucous membranes, hearing normal, ears appear normal Cardiovascular: tachycardia, edema Respiratory: no respiratory distress Gastrointestinal: normoactive bowel sounds, soft, non-tender abdomen, no palpable masses Skin: other ( mild erythema and warmth of both lower extremities) Neurologic: AAOx3, other ( tremulous) Psychiatric: interacting appropriately, not anxious, not encephalopathic, thought process linear ICD10 Worksheet Patient Problems: Problems Problem Status Onset Alcohol intoxication Acute Hypoxia Acute Lower extremity edema Acute
[2016-10-20 19:13] LABS: POTASSIUM 3.3 mEq/L (3.5-5.2)
[2016-10-20 21:05] LABS: POTASSIUM 3.1 mEq/L (3.5-5.2)
[2016-10-21 00:49] LABS: POTASSIUM 3.3 mEq/L (3.5-5.2)
[2016-10-21] MEDS ORDERED: POTASSIUM CL 20 MEQ TAB ONE (01:13)
[2016-10-21] MEDS: LORazepam 2 MG/ML INJ IVP PRN ×4 (01:15→12:31)
[2016-10-21] MEDS: chlordiazePOXIDE 25 MG CAP PO PRN ×3 (04:42→23:05)
[2016-10-21 05:05] LABS: ADD DIFF? YES; ADD MORPH? NO; ADD SCAN? NO; ATYPICAL LYMPHOCYTE FLAG 10 (0-99); FRAGMENT RBC FLAG 0 (0-99); HEMATOCRIT 43.2 % (40.0-51.0); HEMOGLOBIN 14.1 g/dL (13.7-17.5); LEFT SHIFT FLG 0 (0-99); LIPEMIA HEMOLYSIS FLAG 80 (0-99); MEAN CELL HEMOGLOBIN 35.7 pg (27.9-34.1); MEAN CELL HEMOGLOBIN CONCENTR. 32.6 g/dL (32.4-36.7); MEAN CELL VOLUME 109.4 fL (81.5-99.8); MEAN PLATELET VOLUME 9.7 fL (8.7-11.7); PLATELET CLUMPS FLAG 30 (0-99); PLATELET COUNT 116 10^3/uL (150-400); RED BLOOD CELL COUNT 3.95 10^6/uL (4.40-6.38); RED CELL DISTRIBUTION WIDTH 12.1 % (11.5-15.2)
[2016-10-21 05:20] LABS: MAGNESIUM 1.9 mg/dL (1.6-2.3); POTASSIUM 4.1 mEq/L (3.5-5.2)
[2016-10-21 05:43] LABS: MACROCYTES 2+; PLATELET ESTIMATE DECREASED (ADEQ)
[2016-10-21 06:43] LABS: IONIZED CALCIUM 0.73 MMOL/L (1.12-1.30)
[2016-10-21] MEDS: ENOXAPARIN 40 MG/0.4 ML SYR SC SCH (08:00)
[2016-10-21] MEDS: NICOTINE 14 MG/24 HR PATCH TD SCH (08:00)
[2016-10-21] MEDS: FUROSEMIDE 20 MG/2 ML VIAL IVP SCH ×2 (08:00→15:29)
[2016-10-21] MEDS: GABAPENTIN 300 MG CAP PO SCH ×3 (08:01→23:05)
[2016-10-21] MEDS: THIAMINE HCL 100 MG TAB PO SCH (08:01)
[2016-10-21] MEDS: VITAMIN B COMPLEX 1 EA CAP/TAB PO SCH (08:01)
[2016-10-21] MEDS: MULTIVITAMINS 1 EACH TAB PO SCH (08:01)
--- NOTE | 2016-10-21 15:13 | HOSPPROG ---
Hospitalist Progress Note Assessment/Plan: #Acute etoh withdrawal * seems to be getting a bit better * increased scheduled Librium and add p.r.n. Librium as well as Ativan * ?lower extremity cellulitis * still with some redness but not very warm. * I think this is more venous stasis then cellulitis and will discontinue Ancef * lower extremity edema * cont Lasix today *Decompensated RHF: IV lasix and monitor lytes #Macrocytic anemia: due Etoh #Alcoholic hepatitis: discriminant function 6, no indication for steroids #Thrombocytopenia: due to Etoh. No signs of active bleeding #Diet: regular #Acute hypoxemic resp failure: * resolved #DVT ppx: SCDs Subjective: alcohol withdrawal seems to be little better Objective: Vital Signs Temp Pulse Resp BP Pulse Ox 37.6 C 99 21 H 167/100 H 93 10/21/16 12:12 10/21/16 12:12 10/21/16 12:12 10/21/16 12:12 10/21/16 12:12 Laboratory Results 10/21/16 04:45 10/21/16 04:45 10/20/16 10/21/16 10/22/16 05:59 05:59 05:59 Intake Total 85 1300 100 Output Total 200 575 725 Balance -115 725 -625 PT 14.5 SEC (12.0-15.0) 10/17/16 11:50 INR 1.14 (0.83-1.16) 10/17/16 11:50 discussed with pulmonology tele personally viewed interpreted normal sinus rhythm - Physical Exam Constitutional: no apparent distress, appears nourished, not in pain Eyes: anicteric sclera, EOMI Ears, Nose, Mouth, Throat: moist mucous membranes, hearing normal Cardiovascular: regular rate and rhythym, no murmur, rub, or gallop, edema ( 2+ seems to be getting better) Respiratory: no respiratory distress, no rales or rhonchi Gastrointestinal: normoactive bowel sounds, soft, non-tender abdomen, no palpable masses Skin: warm, other ( mild to bilateral lower extremity erythema seems to be improving) Neurologic: AAOx3, other ( mild tremulousness) Psychiatric: interacting appropriately, not anxious, not encephalopathic, thought process linear ICD10 Worksheet Patient Problems: Problems Problem Status Onset Alcohol intoxication Acute Hypoxia Acute Lower extremity edema Acute
[2016-10-21] MEDS: chlordiazePOXIDE 25 MG CAP PO SCH ×2 (15:29→23:05)
--- NOTE | 2016-10-21 16:08 | PDINTPN ---
Leasing Associate Progress Note Assessment/Plan: Assessment/plan: 51 M admitted 10/16 with ROSALIO thought to be 2/2 cellulitis and ETOH w/d on admission. He was initially treated in the ICU with precedex and librium and was apparently stable for the floor, but required transfer back to ICU due to increasing CIWA scores. Uncooperative with ICU nurses, but generally stable. No precedex needed. * ETOH wd- should be subsiding soon. I do not favor starting scheduled PO etoh since we have begun detox here, though I suspect he will continue to drink. * Cellulitis- I agree that his LE erythema is more consistent with venous stasis over cellulitis- Abx dc'd. * O2- sats are marginal but he is refusing O2. Objective: Vital Signs Temp Pulse Resp BP Pulse Ox 37.6 C 123 H 27 H 150/123 H 95 10/21/16 12:12 10/21/16 15:49 10/21/16 15:49 10/21/16 15:49 10/21/16 15:49 Laboratory Results 10/21/16 04:45 10/21/16 04:45 10/20/16 10/21/16 10/22/16 05:59 05:59 05:59 Intake Total 85 1300 100 Output Total 200 575 725 Balance -115 725 -625 PT 14.5 SEC (12.0-15.0) 10/17/16 11:50 INR 1.14 (0.83-1.16) 10/17/16 11:50 Physical Exam - Physical Exam General Appearance: alert, no apparent distress, other (cooperative for me) EENT: PERRL/EOMI Neck: supple Respiratory: lungs clear, normal breath sounds, No respiratory distress, No rales, No rhonchi Cardiac/Chest: normal peripheral pulses, regular rate, rhythm, edema (2+) Abdomen: normal bowel sounds, non-tender, soft, No distended Skin: normal color, warm/dry Extremities: non-tender, pedal edema Neuro/Psych: no motor/sensory deficits, alert, oriented x 3 ICD10 Worksheet Patient Problems: Problems Problem Status Onset Alcohol intoxication Acute Hypoxia Acute Lower extremity edema Acute
[2016-10-22] MEDS ORDERED: chlordiazePOXIDE 25 MG CAP PO SCH
[2016-10-22] MEDS ORDERED: FUROSEMIDE 40 MG TAB PO SCH
[2016-10-22] MEDS: LORazepam 2 MG/ML INJ IVP PRN (01:04)
[2016-10-22 04:04] VITALS: RESP 18
[2016-10-22 04:39] LABS: ADD DIFF? YES; ADD MORPH? NO; ADD SCAN? NO; ATYPICAL LYMPHOCYTE FLAG 70 (0-99); FRAGMENT RBC FLAG 20 (0-99); HEMATOCRIT 49.6 % (40.0-51.0); HEMOGLOBIN 16.9 g/dL (13.7-17.5); LEFT SHIFT FLG 0 (0-99); LIPEMIA HEMOLYSIS FLAG 90 (0-99); MEAN CELL HEMOGLOBIN 36.4 pg (27.9-34.1); MEAN CELL HEMOGLOBIN CONCENTR. 34.1 g/dL (32.4-36.7); MEAN CELL VOLUME 106.9 fL (81.5-99.8); MEAN PLATELET VOLUME 9.5 fL (8.7-11.7); PLATELET CLUMPS FLAG 0 (0-99); PLATELET COUNT 207 10^3/uL (150-400); RED BLOOD CELL COUNT 4.64 10^6/uL (4.40-6.38); RED CELL DISTRIBUTION WIDTH 11.9 % (11.5-15.2)
[2016-10-22 04:58] LABS: ANION GAP 12 mEq/L (8-16); CALCIUM 9.3 mg/dL (8.5-10.4); CARBON DIOXIDE 30 mEq/l (22-31); CHLORIDE 102 mEq/L (97-110); CREATININE 0.6 mg/dL (0.7-1.3); GLOMERULAR FILTRATION RATE > 60; GLUCOSE 99 mg/dL (70-100); MAGNESIUM 1.7 mg/dL (1.6-2.3); SODIUM 144 mEq/L (134-144)
[2016-10-22 05:56] LABS: MACROCYTES 2+; PLATELET ESTIMATE ADEQUATE (ADEQ)
[2016-10-22 08:15] VITALS: BP 117/103; PULSE 109; TEMP 97.8; O2SAT 94
[2016-10-22] MEDS: ENOXAPARIN 40 MG/0.4 ML SYR SC SCH (09:08)
[2016-10-22] MEDS: VITAMIN B COMPLEX 1 EA CAP/TAB PO SCH (09:08)
[2016-10-22] MEDS: chlordiazePOXIDE 25 MG CAP PO SCH (09:08)
[2016-10-22] MEDS: GABAPENTIN 300 MG CAP PO SCH (09:08)
[2016-10-22] MEDS: MULTIVITAMINS 1 EACH TAB PO SCH (09:08)
[2016-10-22] MEDS: FUROSEMIDE 20 MG/2 ML VIAL IVP SCH (09:09)
[2016-10-22] MEDS: THIAMINE HCL 100 MG TAB PO SCH (09:09)
--- NOTE | 2016-10-22 10:00 | PDIAF ---
- Diagnosis Diagnosis: edema, etoh withdrawal Code Status: Full Code - Medication Management Discharge Medications: Medications to Continue on Transfer Furosemide [Lasix 40 MG (*)] 40 mg PO DAILY 10/16/16 [Last Taken 10/16/16] Gabapentin [Neurontin 300 MG (*)] 300 mg PO TID 10/16/16 [Last Taken 10/16/16 07 :30] Herbals/Supplements -Info Only 1 ea PO DAILY 10/16/16 [Last Taken 10/02/16] Multivitamins [Multivitamin (*)] 1 each PO DAILY 10/16/16 [Last Taken 10/02/16] Potassium Cl [Klor-Con 20 meq (*)] 20 meq PO BIDMEAL 10/16/16 [Last Taken 08:00] Vitamin B Complex [B Complex] 1 each PO DAILY 10/16/16 [Last Taken 10/02/16] chlordiazePOXIDE [Librium 25 mg (*)] 25 mg PO Q4 PRN #30 cap 10/22/16 [Last Taken Unknown] Discharge Medications: Refer to the Discharge Home Medication list for PRN reason. - Orders Services needed: Home Care, Physical Therapy, Occupational Therapy Home Care Face to Face: I certify that this patient was under my care and that I had the required [id number] encounter meeting the encounter requirements on the discharge day. My findings support the fact that the patient is homebound as defined in CMS Chapter 7 Medicare Benefits Manual 30.1.1, The condition of the patient is such that there exists a normal inability to leave home and consequently, leaving home would require a considerable and taxing effort. Activity/Weight Bearing Restrictions: stop librium if you restart drinking. consider compression stocking for swelling - Follow Up Care Current Providers and Referrals: Leisa Hobbs MD [Primary Care Provider] - As per Instructions
[2016-10-22] MEDS: NICOTINE 14 MG/24 HR PATCH TD SCH (10:08)
[2016-10-22] MEDS ORDERED: MAGNESIUM OXIDE 400 MG TAB PO SCH (12:00)
--- NOTE | 2016-10-22 14:40 | PDINTPN ---
[employer] Stitcher Progress Note Assessment/Plan: Assessment/plan: 51 M admitted 10/16 with ROSALIO thought to be 2/2 cellulitis and ETOH w/d on admission. He was initially treated in the ICU with precedex and librium and was apparently stable for the floor, but required transfer back to ICU due to increasing CIWA scores. Uncooperative with ICU nurses, but generally stable. No precedex needed. * ETOH wd- improving and oriented and cooperative with me today. Anxious to go home. * Cellulitis- I agree that his LE erythema is more consistent with venous stasis over cellulitis- Abx dc'd. * O2- sats are marginal but he is refusing O2. 10/22/16 14:39 Objective: Vital Signs Temp Pulse Resp BP Pulse Ox 36.6 C 109 H 18 117/103 H 94 10/22/16 08:00 10/22/16 08:00 10/22/16 08:00 10/22/16 08:00 10/22/16 08:00 Laboratory Results 10/22/16 04:20 10/22/16 04:20 10/21/16 10/22/16 10/23/16 05:59 05:59 05:59 Intake Total 1300 800 Output Total 575 925 Balance 725 -125 PT 14.5 SEC (12.0-15.0) 10/17/16 11:50 INR 1.14 (0.83-1.16) 10/17/16 11:50 Physical Exam - Physical Exam General Appearance: alert, no apparent distress, obese EENT: PERRL/EOMI Neck: supple Respiratory: lungs clear, normal breath sounds, No respiratory distress, No rales, No rhonchi Cardiac/Chest: normal peripheral pulses, regular rate, rhythm, No edema Abdomen: normal bowel sounds, non-tender, soft, No distended Skin: normal color, warm/dry, No cyanosis Lymphatic: no adenopathy Extremities: non-tender, No pedal edema Neuro/Psych: alert, normal mood/affect, oriented x 3 ICD10 Worksheet Patient Problems: Problems Problem Status Onset Alcohol intoxication Acute Hypoxia Acute Lower extremity edema Acute
[2016-10-22] MEDS ORDERED: LORazepam 1 MG TAB PO SCH (15:36)
--- NOTE | 2016-10-22 16:04 | GDS ---
[f rep st] DISCHARGE SUMMARY DISCHARGE DIAGNOSES: 1. Acute alcohol withdrawal. 2. Acute hypoxic respiratory failure due to fluid overload and diastolic dysfunction, resolved. 3. Lower extremity edema, most likely due to pulmonary hypertension. 4. Probable pulmonary hypertension, suspected due to obstructive sleep apnea. 5. Suspected obstructive sleep apnea. 6. Alcoholic hepatitis with fatty liver changes. 7. Thrombocytopenia. 8. Probable depression and anxiety. 9. Possible lower extremity cellulitis. HISTORY: This is a 51-year-old male who presented with worsening lower extremity edema. He had bee n recently started on diuretics for this by his primary care doctor. IMAGIN. CT scan of the chest, which did not show a pulmonary embolism but did show triple-vessel coronar y disease and steatosis of the liver. 2. Echocardiogram, which showed an EF of 50% to 55%, diastolic dysfunction, and pulmonary hypertens ion as well as decreased right systolic function. 3. Lower extremity venous study, which showed no DVT. HOSPITAL COURSE: The patient was admitted for worsening lower extremity edema. He also had some mi ld hypoxic respiratory failure. With diuresis, his hypoxemia resolved. I suspect this is probably due to some diastolic dysfunction. He then experienced severe alcohol withdrawal, requiring Precede x drip as well as large doses of benzodiazepines. This lasted for many days. During that time, we were diuresing him and his lower extremity edema improved, although he still had a significant amoun t. Echocardiogram does show probably severe pulmonary hypertension as the cause. I am wondering if there might be an element of obstructive sleep apnea as the initial cause. He continued to improve and was adamant that he wanted to leave the hospital. Physical Therapy saw him and though he was b orderline, they felt that he was safe to go home with his . We have increased his diuretics to 40 mg b.i.d. I have also instructed him to see if he can get com pression stockings. We have added Librium as needed for withdrawal symptoms. He was instructed to discontinue the Librium if he decides to drink again. TIME SPENT: Greater than 30 minutes was spent on discharge. /[id number]/MODL
== END 2016-10-22 15:03 | disposition home or self-care (01) | DRG 896 ==
LOC: OBSVTOIN 17:10 → F2N 20:00 → F3E 10-19 14:45 → F2N 10-20 06:11
PROVIDERS: ADMIT Hospitalist; ATTEND Hospitalist
DX: F10.239 Alcohol dependence with withdrawal, unspecified (principal); J96.01 Acute respiratory failure with hypoxia; I50.30 Unspecified diastolic (congestive) heart failure; L03.115 Cellulitis of right lower limb; L03.116 Cellulitis of left lower limb; Y90.7 Blood alcohol level of 200-239 mg/100 ml; K70.10 Alcoholic hepatitis without ascites; D69.6 Thrombocytopenia, unspecified; D53.9 Nutritional anemia, unspecified; I10 Essential (primary) hypertension; I27.2 Other secondary pulmonary hypertension; F41.8 Other specified anxiety disorders
CPT/HCPCS: 97116-GP; 97162-GP; 97166-GO; 97530-GO; 97530-GP; 97535-GO; G0480; J0690; J1650; J2060; J3475; Q9967